=== PATIENT | male | born 1970 | race Two or more races ===

== ENCOUNTER 2024-09-11 13:37 | Emergency (ER) | payer MEDICARE, MEDICAID ==
[~2024-09-11] VITALS: Ht 172.7 cm; Wt 114.0 kg
[2024-09-11 13:42] VITALS: O2SAT 100
[2024-09-11] MEDS: TRANEXAMIC ACID 1,000MG/10ML TP ONE (16:13)
[2024-09-11] MEDS: LIDOCAINE HCL/EPINEPHRINE 1%-EPI 1:100,000 20ML VIAL INFIL ONE (17:05)
[2024-09-11 18:05] VITALS: BP 150/100; PULSE 68; RESP 15; TEMP 36.7; O2SAT 100
== END 2024-09-11 18:08 | disposition home or self-care (01) ==
LOC: ER 13:37
DX: S21.111A Laceration without foreign body of right front wall of thorax without penetration into thoracic cavity, initial encounter (principal); T82.838A Hemorrhage due to vascular prosthetic devices, implants and grafts, initial encounter; I12.0 Hypertensive chronic kidney disease with stage 5 chronic kidney disease or end stage renal disease; N18.6 End stage renal disease; Z99.2 Dependence on renal dialysis; X58.XXXA Exposure to other specified factors, initial encounter; Y92.89 Other specified places as the place of occurrence of the external cause; Y93.89 Activity, other specified; Y99.8 Other external cause status
CPT/HCPCS: 99284; 71045; 12001; J2004